=== PATIENT | female | born 1995 | race Caucasian/White ===

== ENCOUNTER 2019-02-08 18:54 | Emergency (ER) | payer OTHER ==
[~2019-02-08] VITALS: Ht 172.7 cm; Wt 63.5 kg
[2019-02-08 19:02] VITALS: BP_SYST 127
[2019-02-08 19:59] VITALS: BP_SYST 127
== END 2019-02-08 19:59 | disposition home or self-care (01) ==
LOC: SED 18:54
DX: L03.316 Cellulitis of umbilicus (principal)
CPT/HCPCS: 99283